=== PATIENT | female | born 1985 | race Caucasian/White ===

== ENCOUNTER 2018-04-10 08:23 | Emergency (ER) | payer OTHER ==
[2018-04-10] MEDS ORDERED: NS 1,000 ML IV ONE (08:41)
--- NOTE | 2018-04-10 09:01 | EDPHY ---
HPI/HX/ROS/PE/MDM Narrative: CHIEF COMPLAINT: Finger injury HPI: The patient is a 33-year-old female with no significant past medical history. She reports severe pain to her right distal ring finger. Just prior to arrival, she was moving a glass top table with the glass fell down on her distal finger, pinching her finger and causing pain and laceration. Patient apparently has a history of fainting with any blood and did pass out and her 's car on the way to the ER. She denies any other injury. She has been in her usual state of health. REVIEW OF SYSTEMS: Aside from elements discussed in the HPI, a comprehensive 10-point review of systems was reviewed and is negative. PMH: None significant. SOCIAL HISTORY: . Denies drug abuse. PHYSICAL EXAM: General:Patient is alert, in no acute distress. ENT:Eyes are normal to inspection. ENT inspection normal. Neck: Normal inspection. Full range of motion. Respiratory:No respiratory distress. Breath sounds normal bilaterally. Cardiovascular: Regular rate and rhythm. Strong peripheral pulses. Normal cap refill. Abdomen:The abdomen is nontender to palpation. There are no peritoneal signs. There are normal bowel sounds. Back: Normal to inspection. No tenderness to palpation. Skin: Normal color. No rash. Warm and dry. Extremities: Right 4th digit. There is diffuse swelling of the distal part of the finger as well as a 1 cm laceration with mild nonpulsatile bleeding. Neuro: Oriented x3. Normal motor function. Normal sensory function. ED Course: Procedure: Laceration repair. Verbal consent was obtained from the patient. The 1cm laceration on the distal 4th finger was anesthetized in the usual fashion. The wound was irrigated, draped and explored to its base. No foreign material was identified. There were no deep structures involved. No tendon injury was identified. The wound was repaired with 4 sutures of 5-0 prolene. Good approximation was obtained. The procedure was performed by myself. MDM: This patient presents with a crush injury of her distal phalanx. There is a small tuft fracture and in the setting of nearby laceration we will place her on oral antibiotics. The patient has several non contiguous small lacerations of the distal aspect of the finger. I did my best to close these, but she will likely need wound revision if they are not well approximated 1 swelling comes down. I prescribed oral Percocet at the patient's request and the patient will need follow-up with a hand specialist. - Data Points Imaging Results: Imaging Impressions Finger X-Ray 04/10/18 09:18 Impression: Acute minimally displaced fracture bony tuft distal phalanx fourth finger. Medications Given: Discontinued Medications Sodium Chloride (Ns) 1,000 mls @ 3,000 mls/hr IV ONCE ONE Stop: 04/10/18 09:00 Last Admin: 04/10/18 08:43 Dose: 1,000 mls Lorazepam (Ativan Injection) 0.5 mg IVP EDNOW ONE Stop: 04/10/18 09:10 Last Admin: 04/10/18 09:12 Dose: 0.5 mg General Time Seen by Provider: 04/10/18 08:28 Initial Vital Signs: Initial Vital Signs Temperature (C) 36.0 C 04/10/18 08:25 Heart Rate 52 L 04/10/18 08:25 Respiratory Rate 16 04/10/18 08:25 Blood Pressure 73/44 L 04/10/18 08:25 O2 Sat (%) 98 04/10/18 08:25 O2 Delivery Mode Room Air Allergies/Adverse Reactions: Penicillins Allergy (Verified 11/23/14 12:14) Home Medications: Medication Instructions Recorded Cephalexin [Keflex] 500 mg PO TID #21 cap 04/10/18 Vyvanse 04/10/18 oxyCODONE/APAP 5/325 [Percocet 5 - 10 mg PO Q6 PRN #10 tab 04/10/18 5/325] Departure - Departure Disposition: Home, Routine, Self-Care Clinical Impression: Open fracture of tuft of distal phalanx of finger, Laceration Condition: Good Instructions: Finger Laceration (ED) Additional Instructions: Follow up with hand specialist within 1 week. Sutures out in 10-14 days. Return to the Emergency Department for fever, redness, discharge from wound, increasing pain or other worsening of condition. Referrals: NONE *PRIMARY CARE P,. [Primary Care Provider] - As per Instructions Casimiro Apple MD [Medical Doctor] - As per Instructions Prescriptions: Cephalexin [Keflex] 500 mg PO TID #21 cap oxyCODONE/APAP 5/325 [Percocet 5/325] 5 - 10 mg PO Q6 PRN #10 tab PRN Reason: For Pain
[2018-04-10] MEDS ORDERED: LORazepam 2 MG/ML INJ IVP ONE (09:09)
[2018-04-10] MEDS ORDERED: LORazepam 2 MG/ML INJ ONE (09:10)
[2018-04-10 10:27] VITALS: BP 120/76
== END 2018-04-23 09:44 | disposition home or self-care (01) ==
PROC: 0HQFXZZ Repair Right Hand Skin, External Approach (ICD-10-PCS; principal; 2018-04-10)
DX: S61.214A Laceration without foreign body of right ring finger without damage to nail, initial encounter (principal); S62.634B Displaced fracture of distal phalanx of right ring finger, initial encounter for open fracture; W23.1XXA Caught, crushed, jammed, or pinched between stationary objects, initial encounter; Y93.89 Activity, other specified
CPT/HCPCS: 96374; J2060; L3925